=== PATIENT | female | born 1990 ===

== ENCOUNTER 2021-09-24 10:16 | Inpatient (IN) | payer OTHER ==
[~2021-09-24] VITALS: Ht 152.4 cm; Wt 65.8 kg
[2021-09-24] MEDS ORDERED: PRENATAL TABLE1 EAC1 PO (10:54)
[2021-09-24] MEDS ORDERED: ECOTRIN81 MG PO (10:54)
== END 2021-09-27 15:34 | disposition home or self-care (01) | DRG 768 ==
LOC: LDR 10:16 → O/R 20:38 → LDR 09-25 05:58 → OB/GYN 09-25 20:38
PROVIDERS: ADMIT Obstetrics & Gynecology; ATTEND Obstetrics & Gynecology
PROC: 10E0XZZ Delivery of Products of Conception, External Approach (ICD-10-PCS; principal; 2021-09-25)
PROC: 0U9MXZZ Drainage of Vulva, External Approach (ICD-10-PCS; 2021-09-25)
PROC: 0HQ9XZZ Repair Perineum Skin, External Approach (ICD-10-PCS; 2021-09-25)
PROC: 4A1HXFZ Monitoring of Products of Conception, Cardiac Rhythm, External Approach (ICD-10-PCS; 2021-09-25)
DX: O42.02 Full-term premature rupture of membranes, onset of labor within 24 hours of rupture (principal); Z37.0 Single live birth; O71.7 Obstetric hematoma of pelvis; O70.0 First degree perineal laceration during delivery; Z3A.38 38 weeks gestation of pregnancy